=== PATIENT | male | born 1985 | race Caucasian/White ===

== ENCOUNTER 2024-07-14 17:37 | Emergency (ER) | payer MEDICAID ==
[~2024-07-14] VITALS: Ht 182.9 cm; Wt 103.1 kg
[2024-07-14] MEDS ORDERED: NO HOME MEDS (18:18)
[2024-07-14 19:12] VITALS: RESP 16
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
--- NOTE | 2024-07-14 20:34 | RADIOLOGY REPORT ---
Clinical History Shoulder Pain Comparison None Technique: 2 views Without Contrast LYNNE DONNELLY, [id number] FINDINGS: Left mid displaced clavicular fracture is identified. No significant degenerative or erosive changes are noted. The acromioclavicular and sternoclavicular joints are unremarkable. Soft tissue structur es are grossly unremarkable. Visualized portion of the lung apex is clear. IMPRESSION: Left mid displaced clavicular fracture. This report was electronically signed by Stephon Escamilla MD on 07/14/2024 8:31:49 PM.
[2024-07-14 20:47] VITALS: BP 143/89; PULSE 111; TEMP 98.4; O2SAT 97
== END 2024-07-14 20:50 | disposition home or self-care (01) ==
LOC: ER 17:40
DX: S42.002A Fracture of unspecified part of left clavicle, initial encounter for closed fracture (principal); H11.31 Conjunctival hemorrhage, right eye; V89.2XXA Person injured in unspecified motor-vehicle accident, traffic, initial encounter; Y93.89 Activity, other specified; Y92.89 Other specified places as the place of occurrence of the external cause; Y99.8 Other external cause status
CPT/HCPCS: 73000; 99283